=== PATIENT | male | born 1995 | race Two or more races ===

== ENCOUNTER 2022-09-04 11:52 | Emergency (ER) | payer SELFPAY | END 2022-09-04 12:54 | disposition home or self-care (01) | LOC: MW.ED 11:52 | DX: S67.21XA Crushing injury of right hand, initial encounter (principal); S60.031A Contusion of right middle finger without damage to nail, initial encounter; W23.1XXA Caught, crushed, jammed, or pinched between stationary objects, initial encounter; Y99.0 Civilian activity done for income or pay | CPT/HCPCS: 73120-26-RT; 73120-RT; 99283 ==